=== PATIENT | female | born 1985 | race Caucasian/White ===

== ENCOUNTER 2018-09-11 06:24 | Inpatient (IN) | payer OTHER ==
[~2018-09-11] VITALS: Ht 165.1 cm; Wt 59.9 kg
[2018-09-11] MEDS ORDERED: RINGERS SOLUTION,LACTATED 1,000 ML IV ONE (07:26)
[2018-09-11] MEDS ORDERED: OXYTOCIN 30 UNITS/LACT RINGERS 500 ML IV ONE (07:26)
[2018-09-11] MEDS ORDERED: METOCLOPRAMIDE HCL 5 MG/ML 2 ML VIAL IVP PRN (07:30)
[2018-09-11] MEDS ORDERED: LIDOCAINE/PF 1% 30 ML VIAL INJ PRN (07:30)
[2018-09-11] MEDS ORDERED: CITRIC ACID/SODIUM CITRATE 30 ML SOLUTION UDCUP PO PRN (07:30)
[2018-09-11] MEDS ORDERED: MISOPROSTOL 25 MCG TABLET VG ONE (07:45)
[2018-09-11 07:56] LABS: BASOPHILS % (AUTO) 0.5 % (0.0-2.0); EOSINOPHILS % (AUTO) 3.7 % (1.0-6.0); HEMATOCRIT 37.7 % (36-46); HEMOGLOBIN 12.7 g/dL (12.0-16.0); LYMPHOCYTES # (AUTO) 2.2 K/uL (1.0-4.8); MEAN CORPUSCULAR HEMOGLOBIN 31.9 pg (26.0-34.0); MEAN CORPUSCULAR HGB CONC 33.7 G/dL (31.0-37.0); MEAN CORPUSCULAR VOLUME 95 fL (80-100); MONOCYTES # (AUTO) 0.6 K/uL (0.1-1.0); MONOCYTES % (AUTO) 7.1 % (2.0-9.0); NEUTROPHILS # (AUTO) 5.9 K/uL (1.8-7.7); NEUTROPHILS % (AUTO) 64.7 % (40.0-70.0); PLATELET COUNT (AUTO)-OB 333 K/uL (150-450); RED BLOOD CELL COUNT(AUTO) 3.98 MIL/uL (4.00-5.20); RED CELL DISTRIBUTION WIDTH 13.5 % (11.5-14.5)
[2018-09-11 08:29] VITALS: BP 107/61
[2018-09-11] MEDS ORDERED: PREN-217 PO (08:33)
[2018-09-11] MEDS: MISOPROSTOL 50 MCG TABLET PO SCH ×3 (12:36→20:45)
[2018-09-11] MEDS: RINGERS SOLUTION,LACTATED 1,000 ML IV SCH ×3 (13:42→23:26)
[2018-09-11] MEDS ORDERED: OXYTOCIN 30 UNITS/LACT RINGERS 500 ML IV PRN (19:30)
[2018-09-12] MEDS: MISOPROSTOL 50 MCG TABLET PO SCH ×2 (00:43→04:55)
[2018-09-12] MEDS ORDERED: OXYTOCIN 30 UNITS/LACT RINGERS 500 ML IV PRN (09:25)
[2018-09-12] MEDS ORDERED: ROPIVACAINE HCL/PF 0.2% 100 ML ED ONE (09:40)
[2018-09-12] MEDS ORDERED: ONDANSETRON HCL 4 MG/2 ML VIAL IVP PRN (12:00)
[2018-09-12] MEDS ORDERED: DiphenhydrAMINE HCL 50 MG/ML VIAL IVP PRN (12:00)
[2018-09-12] MEDS: ROPIVACAINE HCL/PF 0.2% 100 ML ED PRN (19:18)
[2018-09-12] MEDS: RINGERS SOLUTION,LACTATED 1,000 ML IV SCH (19:25)
[2018-09-12] MEDS ORDERED: AMPICILLIN SODIUM 2 GM/NS 100 ML IV SCH (19:45)
[2018-09-12] MEDS: AMPICILLIN SODIUM 2 GM/NS 100 ML IV SCH (21:28)
[2018-09-13] MEDS: RINGERS SOLUTION,LACTATED 1,000 ML IV SCH ×2 (00:01→21:33)
[2018-09-13] MEDS: AMPICILLIN SODIUM 2 GM/NS 100 ML IV SCH ×2 (03:46→09:39)
[2018-09-13] MEDS ORDERED: GuaiFENesin/D-METHORPHAN [SUGAR-FREE] 200-20MG/10 ML SYRUP UDCUP PO PRN (04:00)
[2018-09-13] MEDS: ROPIVACAINE HCL/PF 0.2% 100 ML ED PRN (05:00)
[2018-09-13] MEDS ORDERED: ACETAMINOPHEN 1000 MG/ISO-OSM 100 ML IV ONE ×2 (13:44→13:45)
[2018-09-13] MEDS ORDERED: NALBUPHINE HCL 10 MG/ML VIAL IVP PRN ×3 (13:45)
[2018-09-13] MEDS ORDERED: MORPHINE SULFATE 10 MG/ML SYRINGE IVP PRN ×2 (13:45)
[2018-09-13] MEDS ORDERED: MORPHINE SULFATE 2 MG/ML SYRINGE IVP PRN ×2 (13:45)
[2018-09-13] MEDS ORDERED: DEXAMETHASONE SOD PHOS 4 MG/ML VIAL IVP PRN (13:45)
[2018-09-13] MEDS ORDERED: FentaNYL CITRATE-PF 100 MCG/2 ML VIAL IVP PRN ×4 (13:45)
[2018-09-13] MEDS ORDERED: DiphenhydrAMINE HCL 50 MG/ML VIAL IVP PRN ×2 (13:45)
[2018-09-13] MEDS ORDERED: ONDANSETRON HCL 4 MG/2 ML VIAL IVP PRN ×2 (13:45)
[2018-09-13] MEDS ORDERED: NALOXONE HCL 0.4 MG/ML VIAL IVP PRN (13:45)
[2018-09-13] MEDS ORDERED: MEPERIDINE-PF 25 MG/ML VIAL IVP PRN (13:45)
[2018-09-13] MEDS ORDERED: OXYGEN THERAPY IH SCH ×4 (20:00)
[2018-09-13] MEDS ORDERED: ACETAMINOPHEN 1000 MG/ISO-OSM 100 ML IV SCH (22:00)
[2018-09-14] MEDS ORDERED: KETOROLAC TROMETHAMINE 30 MG/ML VIAL IVP PRN (02:15)
[2018-09-14] MEDS ORDERED: 0.9% SODIUM CHLORIDE 10 ML VIAL IVP ONE (05:37)
[2018-09-14] MEDS ORDERED: OXYTOCIN 10 UNITS/ML VIAL IM ONE (05:37)
[2018-09-14] MEDS: RINGERS SOLUTION,LACTATED 1,000 ML IV SCH (06:16)
[2018-09-14] MEDS ORDERED: OXYTOCIN 30 UNITS/LACT RINGERS 500 ML IV ONE (07:40)
[2018-09-14] MEDS ORDERED: RINGERS SOLUTION,LACTATED 1,000 ML IV SCH (07:40)
[2018-09-14] MEDS ORDERED: LANOLIN 7 GM OINTMENT TP PRN (07:45)
[2018-09-14] MEDS: MAGNESIUM HYDROXIDE SUSPENSION 30 ML UDCUP PO SCH ×2 (08:23→21:10)
[2018-09-14] MEDS ORDERED: OxyCODONE HCL/ACETAMINOPHEN 5-325 MG TABLET PO PRN ×2 (14:00)
[2018-09-14] MEDS: IBUPROFEN 800 MG TABLET PO PRN (16:43)
[2018-09-14 18:59] LABS: BASOPHILS % (AUTO) 0.1 % (0.0-2.0); EOSINOPHILS % (AUTO) 1.8 % (1.0-6.0); HEMATOCRIT 34.1 % (36-46); HEMOGLOBIN 11.3 g/dL (12.0-16.0); LYMPHOCYTES # (AUTO) 1.7 K/uL (1.0-4.8); LYMPHOCYTES % (AUTO) 11.3 % (22.0-44.0); MEAN CORPUSCULAR HEMOGLOBIN 31.5 pg (26.0-34.0); MEAN CORPUSCULAR VOLUME 95 fL (80-100); MONOCYTES # (AUTO) 0.8 K/uL (0.1-1.0); MONOCYTES % (AUTO) 5.6 % (2.0-9.0); NEUTROPHILS # (AUTO) 12.1 K/uL (1.8-7.7); NEUTROPHILS % (AUTO) 81.2 % (40.0-70.0); PLATELET COUNT (AUTO)-OB 315 K/uL (150-450); RED BLOOD CELL COUNT(AUTO) 3.58 MIL/uL (4.00-5.20); RED CELL DISTRIBUTION WIDTH 13.5 % (11.5-14.5)
[2018-09-15] MEDS: IBUPROFEN 800 MG TABLET PO PRN ×2 (01:43→13:28)
[2018-09-15] MEDS: MAGNESIUM HYDROXIDE SUSPENSION 30 ML UDCUP PO SCH (08:21)
[2018-09-15] MEDS ORDERED: IBUP-2071 PO (13:06)
[2018-09-15] MEDS ORDERED: DSS100 PO (13:07)
== END 2018-09-15 17:00 | disposition home or self-care (01) | DRG 788 ==
LOC: 4S 06:24 → OBSVTOIN 06:24 → 4S 09-13 13:20
PROVIDERS: ADMIT Obstetrics & Gynecology; ATTEND Obstetrics & Gynecology
PROC: 10D00Z1 Extraction of Products of Conception, Low, Open Approach (ICD-10-PCS; principal; 2018-09-13)
DX: O76 Abnormality in fetal heart rate and rhythm complicating labor and delivery (principal); O69.81X0 Labor and delivery complicated by cord around neck, without compression, not applicable or unspecified; O62.2 Other uterine inertia; O32.8XX0 Maternal care for other malpresentation of fetus, not applicable or unspecified; Z3A.39 39 weeks gestation of pregnancy; Z37.0 Single live birth
CPT/HCPCS: 86850; 86900; 86901; J0131; J0290; J0690; J1200; J2590; J2795; J7120